=== PATIENT | male | born 1955 | race Asian ===

== ENCOUNTER 2018-09-16 12:58 | Emergency (ER) | payer OTHER ==
[~2018-09-16] VITALS: Ht 165.1 cm; Wt 71.2 kg
[2018-09-16 13:11] VITALS: BP 158/86
--- NOTE | 2018-09-16 13:25 | NUR ---
WAIT IN LOBBY. JOSE ARMS WOUND. BLEEDING IN CONTROL. REPOTED TO CAN LEUNG.
--- NOTE | 2018-09-16 13:45 | NUR ---
PT AMB TO BED 6
--- NOTE | 2018-09-16 13:47 | NUR ---
PT AMBULATED TO ER BED 06
--- NOTE | 2018-09-16 14:13 | NUR ---
PT BIB FAMILY TO THE ED WITH THE CHIEF C/O DOG BITE X TODAY. PUNCTURE WOUND X4, SCRATCHES NOTED ON BOTH ARM. SWOLLEN ARM, BRUISE PRESENT. MINIMAL BLEEDING FROM PUNCTURE WOUND. STATES PAIN 4/10 AT THIS TIME. PT APPLIED TRIPLE ANTIBIOTICS ON HIS LEFT ARM WOUND. DENIES ANY OTHER PROBLEM AT THIS TIME.
--- NOTE | 2018-09-16 14:16 | NUR ---
PT BEING SEEN BY ER AT THIS TIME.
--- NOTE | 2018-09-16 14:31 | NUR ---
ANIMAL BITE REPORT FAXED TO [facility].
[2018-09-16] MEDS: IBUPROFEN 600 MG TAB PO ONE ×2 (14:47→14:49)
[2018-09-16] MEDS ORDERED: BACITRACIN OINT 500 UNITS/GM PKT TP ONE (16:51)
[2018-09-16 16:59] VITALS: BP 140/75
== END 2018-09-16 16:59 | disposition home or self-care (01) ==
LOC: MED 12:58
DX: S51.851A Open bite of right forearm, initial encounter (principal); S51.852A Open bite of left forearm, initial encounter; I10 Essential (primary) hypertension; Z88.0 Allergy status to penicillin; W54.0XXA Bitten by dog, initial encounter; Y93.89 Activity, other specified; Y92.009 Unspecified place in unspecified non-institutional (private) residence as the place of occurrence of the external cause; Y99.8 Other external cause status
CPT/HCPCS: 73090; 90471; 90715; 99283; Q0092

== ENCOUNTER 2019-05-27 11:16 | Emergency (ER) | payer OTHER ==
[~2019-05-27] VITALS: Ht 167.6 cm; Wt 74.1 kg
[2019-05-27 11:26] VITALS: BP 136/76
--- NOTE | 2019-05-27 11:46 | NUR ---
C/O LT FLANK PAIN INJURED 2 WKS AGO RUN INTO A TREE WHILE WALKING HIS ALGERIAN TREVINO DOG. PT AWAKE ,ALERT, AMBULATORY WITH STEADY GAIT , INTERMITTENT PAIN 6/10 UPON BREATHING .NO BRUISES NOTED . SELF MEDICATED WITH TYLENOL WITH SOME RELIEF. HX: HTN, BPH, RHEUMATOID ARTHRITIS
[2019-05-27] MEDS ORDERED: KETOROLAC 30 MG/ML VIAL IM ONE (12:00)
--- NOTE | 2019-05-27 12:05 | NUR ---
PT REFUSE MEDS.
--- NOTE | 2019-05-27 12:10 | NUR ---
PT WENT TO XRAY VIA WHEELCHAIR
--- NOTE | 2019-05-27 12:13 | NUR ---
PT DONE WITH XRAY
[2019-05-27 13:01] LABS: BASOPHILS % (AUTO) 0.7 % (0.0-2.0); EOSINOPHILS # (AUTO) 0.1 K/uL (0-0.4); EOSINOPHILS % (AUTO) 1.5 % (0.0-4.0); HEMATOCRIT 43.9 % (36-52); HEMOGLOBIN 14.4 g/dL (12.0-18.0); LYMPHOCYTES # (AUTO) 1.7 K/uL (2.0-11.5); LYMPHOCYTES % (AUTO) 25.8 % (20.5-51.1); MEAN CORPUSCULAR HEMOGLOBIN 30 pg (27-31); MEAN CORPUSCULAR HGB CONC 33 g/dL (33-37); MONOCYTES # (AUTO) 0.4 K/uL (0.8-1.0); MONOCYTES % (AUTO) 6.2 % (1.7-9.3); NEUTROPHILS # (AUTO) 4.4 K/uL (1.8-7.7); NEUTROPHILS % (AUTO) 65.8 % (42.2-75.2); PLATELET COUNT (AUTO) 290 K/uL (140-450); RED BLOOD CELL COUNT(AUTO) 4.88 MIL/uL (4.20-6.10); RED CELL DISTRIBUTION WIDTH 13.3 % (11.6-13.7); WHITE BLOOD COUNT (AUTO) 6.7 K/uL (4.8-10.8)
[2019-05-27 13:18] LABS: CARBON DIOXIDE 29.7 mmol/L (21-32); CREATININE 0.8 mg/dL (0.7-1.3); POTASSIUM 3.7 mmol/L (3.5-5.1)
[2019-05-27 13:55] VITALS: BP 136/76
--- NOTE | 2019-05-27 14:04 | NUR ---
Patient discharged with v/s stable. Written and verbal after care instructions given and explained. Patient alert, oriented and verbalized understanding of instructions. Ambulatory with steady gait. All questions addressed prior to discharge. ID band removed. Patient advised to follow up with PMD. Rx of LIDOCAINE TRANSDERMAN PATCH, MOTRIN given. Patient educated on indication of medication including possible reaction and side effects. Opportunity to ask questions provided and answered.
== END 2019-05-27 14:04 | disposition home or self-care (01) ==
LOC: MED 11:16
DX: S20.212A Contusion of left front wall of thorax, initial encounter (principal); W22.8XXA Striking against or struck by other objects, initial encounter; Y93.89 Activity, other specified; Y92.89 Other specified places as the place of occurrence of the external cause; Y99.8 Other external cause status
CPT/HCPCS: 36415; 71046; 80048; 84484; 85025; 93005; 99284; J1885

== ENCOUNTER 2022-05-19 19:34 | Emergency (ER) | payer OTHER ==
[~2022-05-19] VITALS: Ht 167.6 cm; Wt 74.8 kg
[2022-05-19 19:50] VITALS: BP 162/76
--- NOTE | 2022-05-19 19:53 | NUR ---
TO LOBBY A/W BED AMBULATORY
--- NOTE | 2022-05-19 21:43 | NUR ---
PT TO 9
--- NOTE | 2022-05-19 22:07 | NUR ---
Patient being evaluated by physician at bedside.
--- NOTE | 2022-05-19 22:26 | NUR ---
66/M BIB SELF C/C HIGH BP X1 DAY. PATIENT STATED "I BEEN FEELING WEIRD AND HAVING CHILLS" . PATIENT STATED THAT HE USUALLY TAKES LOSARTAN, HYDRALAZINE AND AMLODIPINE. STATED "TODAY I ONLY TOOK LOSARTAN(AM) AND HYDRALAZINE(2PM), SO THE DOCTOR CAN SEE THE REAL BLOOD PRESSURE READING. DENIES TAKING AMLODIPINE IN THE EVENING". PATIENT DENIES PAIN/CP/SOB AT THIS TIME. PMHX HTN RX LOSARTAN, HYDRALAZINE, AND AMLODIPINE ALLERGIES PCN
--- NOTE | 2022-05-19 22:26 | NUR ---
LAB AT BEDSIDE
--- NOTE | 2022-05-19 22:26 | NUR ---
ERMD AWARE OF PATIENTS BP
--- NOTE | 2022-05-19 22:27 | NUR ---
RADIOLOGY AT BEDSIDE
[2022-05-19 22:34] LABS: BASOPHILS % (AUTO) 0.6 % (0.0-2.0); EOSINOPHILS # (AUTO) 0.1 K/uL (0-0.4); EOSINOPHILS % (AUTO) 1.6 % (0.0-4.0); HEMATOCRIT 43.9 % (36-52); HEMOGLOBIN 14.6 g/dL (12.0-18.0); LYMPHOCYTES # (AUTO) 2.2 K/uL (2.0-11.5); LYMPHOCYTES % (AUTO) 40.1 % (20.5-51.1); MEAN CORPUSCULAR HEMOGLOBIN 29 pg (27-31); MEAN CORPUSCULAR HGB CONC 33 g/dL (33-37); MEAN CORPUSCULAR VOLUME 88.2 fL (80-94); MONOCYTES # (AUTO) 0.4 K/uL (0.8-1.0); MONOCYTES % (AUTO) 8.1 % (1.7-9.3); NEUTROPHILS # (AUTO) 2.7 K/uL (1.8-7.7); NEUTROPHILS % (AUTO) 49.6 % (42.2-75.2); PLATELET COUNT (AUTO) 256 K/uL (140-450); RED BLOOD CELL COUNT(AUTO) 4.98 MIL/uL (4.20-6.10); WHITE BLOOD COUNT (AUTO) 5.4 K/uL (4.8-10.8)
--- NOTE | 2022-05-19 22:38 | NUR ---
LAB AT BEDSIDE
[2022-05-19 22:57] LABS: ALBUMIN 4.3 g/dL (3.4-5.0); ANION GAP 11.5 (8-16); CARBON DIOXIDE 32.5 mmol/L (21-32); CREATININE 0.9 mg/dL (0.6-1.3); TOTAL BILIRUBIN 0.7 mg/dL (0.0-1.0)
[2022-05-19 23:00] LABS: LIPASE 70 U/L (73-393)
--- NOTE | 2022-05-19 23:13 | NUR ---
Patient being evaluated by physician at bedside.
[2022-05-19] MEDS ORDERED: AMLO10TA PO (23:25)
[2022-05-19 23:39] VITALS: BP 183/93
--- NOTE | 2022-05-19 23:39 | NUR ---
Patient discharged with v/s stable. Written and verbal after care instructions given and explained. Patient alert, oriented and verbalized understanding of instructions. Ambulatory with steady gait. All questions addressed prior to discharge. ID band removed. Patient advised to follow up with PMD. Rx of NORVASC given. Patient educated on indication of medication including possible reaction and side effects. Opportunity to ask questions provided and answered.
== END 2022-05-19 23:39 | disposition home or self-care (01) ==
LOC: MED 19:34
DX: I10 Essential (primary) hypertension (principal); Z79.899 Other long term (current) drug therapy; Z88.0 Allergy status to penicillin
CPT/HCPCS: 36415; 71045; 80053; 83690; 83880; 84484; 85025; 93005; 99285

== ENCOUNTER → 2023-03-27 | Outpatient (CLI) | payer OTHER ==
[~2023-03-27] MED LIST: AMLO10TA PO
== END | disposition home or self-care (01) ==
LOC: MLB 14:06
PROVIDERS: ATTEND Urology
DX: N40.0 Benign prostatic hyperplasia without lower urinary tract symptoms (principal); N52.9 Male erectile dysfunction, unspecified; N32.81 Overactive bladder
CPT/HCPCS: 36415; 84153